=== PATIENT | female | born 1945 ===

== ENCOUNTER 2018-08-27 08:58 | Emergency (ER) | payer OTHER ==
[~2018-08-27] VITALS: Ht 165.1 cm; Wt 85.7 kg
[2018-08-27] MEDS ORDERED: AVAPRO75 MG (09:09)
[2018-08-27] MEDS ORDERED: SYNTHROID75 MCG (09:09)
== END 2018-08-27 17:31 | disposition home or self-care (01) ==
LOC: ER 08:58
DX: Q61.00 Congenital renal cyst, unspecified (principal); R10.32 Left lower quadrant pain